=== PATIENT | female | born 2005 | race Caucasian/White ===

== ENCOUNTER 2023-04-11 12:26 | Inpatient (IN) ==
[2023-04-11 13:10] LABS: ABS Eosinophils 0.1 10^3/uL (0.0-0.5); ABS Lymphocytes 1.5 10^3/uL (1.0-4.8); ABS Monocytes 0.3 10^3/uL (0.0-0.9); ABS Neutrophils 3.1 10^3/uL (1.5-7.6); ABS Nucleated RBC 0.01 10^3/ul; Eosinophil % 2.6 %; Hematocrit 38.5 % (35-45); Hemoglobin 12.8 g/dL (11.5-14.3); Lymphocyte % 29.3 %; Mean Corpuscular Hemoglobin 26.1 pg (27-33); Mean Corpuscular Hgb Conc 33.2 g/dL (31-36); Mean Corpuscular Volume 78.5 fL (80-97); Mean Platelet Volume 7.4 fL (7.5-11.2); Nucleated Red Blood Cells % 0.2 /100 WBC (0.0-0.4); Platelet Count 290 10^3/uL (150-450); Red Blood Count 4.91 10^6/uL (3.63-4.92); Red Cell Distribution Width 14.4 % (12-17); White Blood Count 5.1 10^3/uL (3.8-11.8)
[2023-04-11 13:31] LABS: Albumin 4.5 g/dL (3.2-5.2); Anion Gap 5 mmol/L (2-16); CO2 Carbon Dioxide 27 mmol/L (22-32); Calcium 9.4 mg/dL (8.6-10.3); Chloride 106 mmol/L (101-111); Potassium 3.9 mmol/L (3.5-5.0); Sodium 138 mmol/L (135-145)
[2023-04-11 13:37] LABS: ALT 9 U/L (7-52); AST 18 U/L (13-39); Albumin/Globulin Ratio 1.8 (1-3); Alkaline Phosphatase 74 U/L (35-149); Blood Urea Nitrogen 12 mg/dL (6-24); Creatinine, Serum 0.95 mg/dL (0.51-0.95); Globulin 2.5 g/dL (2-4); Glucose 98 mg/dL (70-100); eGFR CKD-EPI 88.5 (>60)
[2023-04-11 13:38] LABS: HCG Pregnancy < 0.60 mIU/mL
[2023-04-11 13:39] LABS: Urine Appearance Clear; Urine Bilirubin Negative (Negative); Urine Blood Negative (Negative); Urine Color Yellow; Urine Glucose Negative (Negative); Urine Ketones Negative (Negative); Urine Nitrite Negative (Negative); Urine Protein Negative (Negative); Urine Specific Gravity 1.025 (1.002-1.030); Urine Urobilinogen Negative (Negative)
[2023-04-11 14:18] LABS: Acetaminophen < 15 mcg/mL; Alcohol, S < 13 mg/dL (<13); Salicylate < 2.50 mg/dL (<30)
[2023-04-11 14:18] LABS: Urine Benzodiazepine Screen None Detected (None Detect); Urine Cannabinoids Screen None Detected (None Detect); Urine Opiates Screen None Detected (None Detect)
[2023-04-11 14:48] LABS: TSH Ultra Thyroid Stim Horm 0.61 mcIU/mL (0.34-5.60)
[2023-04-11] MEDS ORDERED: Al Hydrox/Mg Hydrox/Simet LIQ 30 ML UDC PO PRN (21:15)
[2023-04-11] MEDS ORDERED: Nicotine GUM 2MG FRUIT FLAVOR PO PRN (22:00)
[2023-04-12 08:53] LABS: HDL Cholesterol 44.2 mg/dL
[2023-04-12 09:14] VITALS: BP 111/67
[2023-04-12] MEDS: CMCS: Testosterone GEL 1.62% 40.5 MG/2.5 GM GEL (NF) TOPICAL SCH (09:17)
[2023-04-12] MEDS: Vitamin THERAPEUTIC TAB PO SCH (09:17)
[2023-04-12] MEDS: Nicotine PATCH 14 MG/24 HR PATCH TRANSDERM SCH (09:18)
[2023-04-13] MEDS: Nicotine PATCH 14 MG/24 HR PATCH TRANSDERM SCH (09:36)
[2023-04-13] MEDS: Vitamin THERAPEUTIC TAB PO SCH (09:36)
[2023-04-13] MEDS: CMCS: Testosterone GEL 1.62% 40.5 MG/2.5 GM GEL (NF) TOPICAL SCH (09:36)
== END 2023-04-13 12:30 | disposition home or self-care (01) | DRG 755 ==
LOC: ED 12:26 → EDHOLD 18:30 → BSU 19:21
PROVIDERS: ADMIT Psychiatry & Neurology Psychiatry; ATTEND Psychiatry & Neurology Psychiatry

== ENCOUNTER 2024-06-17 01:23 | Inpatient (IN) ==
[2024-06-17 02:05] LABS: ABS Eosinophils 0.2 10^3/uL (0.0-0.5); ABS Monocytes 0.4 10^3/uL (0.0-0.9); ABS Neutrophils 3.8 10^3/uL (1.5-7.6); ABS Nucleated RBC 0.01 10^3/ul; Eosinophil % 2.8 %; Hematocrit 41.6 % (35-45); Hemoglobin 14.3 g/dL (11.5-14.3); Lymphocyte % 31.1 %; Mean Corpuscular Hgb Conc 34.5 g/dL (31-36); Mean Corpuscular Volume 81.1 fL (80-97); Mean Platelet Volume 7.2 fL (7.5-11.2); Nucleated Red Blood Cells % 0.1 %/100WBC (0.0-0.8); Platelet Count 268 10^3/uL (150-450); Red Blood Count 5.12 10^6/uL (3.63-4.92); Red Cell Distribution Width 14.4 % (12-17); White Blood Count 6.3 10^3/uL (3.8-11.8)
[2024-06-17] MEDS ORDERED: Charcoal ACTIVATED 25 GM/120 ML BTL ONE (02:14)
[2024-06-17] MEDS: Charcoal ACTIVATED 50 GM/240 ML BTL PO ONE (02:19)
[2024-06-17 02:36] LABS: Urine Appearance Clear; Urine Bilirubin Negative (Negative); Urine Blood Negative (Negative); Urine Color Light-Yellow; Urine Glucose Negative (Negative); Urine Ketones Trace (Negative); Urine Nitrite Negative (Negative); Urine Protein Negative (Negative); Urine Specific Gravity 1.023 (1.002-1.030); Urine Urobilinogen Negative (Negative); Urine pH 5.5 (5.0-8.0)
[2024-06-17 02:47] LABS: Urine Benzodiazepine Screen None Detected (None Detect); Urine Cannabinoids Screen None Detected (None Detect); Urine Opiates Screen None Detected (None Detect)
[2024-06-17 02:55] LABS: ALT 19 U/L (7-52); AST 23 U/L (13-39); Acetaminophen < 15 mcg/mL; Albumin 4.7 g/dL (3.2-5.2); Alcohol, S 175 mg/dL (<13); Alkaline Phosphatase 61 U/L (35-149); Anion Gap 9 mmol/L (2-16); Blood Urea Nitrogen 14 mg/dL (6-24); CO2 Carbon Dioxide 26 mmol/L (22-32); Calcium 9.5 mg/dL (8.6-10.3); Chloride 105 mmol/L (101-111); Globulin 2.4 g/dL (2-4); Glucose 88 mg/dL (70-100); Potassium 3.8 mmol/L (3.5-5.0); Salicylate < 2.50 mg/dL (<30); Sodium 140 mmol/L (135-145); Total Bilirubin 0.3 mg/dL (0.2-1.0); Total Protein 7.1 g/dL (6.4-8.9); eGFR CKD-EPI 66.5 (>60)
[2024-06-17 03:02] LABS: HCG Pregnancy < 0.60 mIU/mL
[2024-06-17] MEDS: Lactated Ringers 1000 ml BAG 1,000 ML IV SCH (04:37)
[2024-06-17] MEDS: Lactated Ringers 1000 ml BAG 1,000 ML IV ONE (04:39)
[2024-06-17 10:39] VITALS: BP 112/76
[2024-06-18 08:04] LABS: HDL Cholesterol 51.3 mg/dL
[2024-06-18] MEDS: Nicotine PATCH 21 MG/24 HR PATCH TRANSDERM SCH (08:22)
[2024-06-18] MEDS ORDERED: COVID VAC 24-25 (12+) (Moderna) Syringe 0.5 mL IM ONE (09:00)
[2024-06-18] MEDS ORDERED: PUMP TOPICAL SCH (21:00)
[2024-06-18] MEDS ORDERED: TESTOSTERONE TOPICAL SCH (21:00)
[2024-06-18] MEDS: TESTOSTERONE TOPICAL SCH (21:04)
== END 2024-06-19 18:01 | disposition home or self-care (01) | DRG 751 ==
LOC: ED 01:23 → EDHOLD 09:16 → BSU 09:37
PROVIDERS: ADMIT Psychiatry & Neurology Addiction Psychiatry; ATTEND Psychiatry & Neurology Psychiatry